=== PATIENT | male | born 1985 | race Caucasian/White ===

== ENCOUNTER 2024-08-08 19:01 | Emergency (ER) | payer MEDICAID, SELFPAY ==
[2024-08-08 19:04] VITALS: BP 148/103; PULSE 117; RESP 18; TEMP 36.7; O2SAT 100; BMI 40.9
--- NOTE | 2024-08-08 19:11 | PC.NURSE ---
Patient is unhoused. Declined CONFERENCE CENTER MANAGER consult.
--- NOTE | 2024-08-08 20:21 | PC.NURSE ---
Patient notified registration that they were leaving at 2004.
== END 2024-08-08 20:05 | disposition left against medical advice (07) ==
PROVIDERS: Emergency Provider Emergency Medicine; PCP Physician Assistant
CPT/HCPCS: 99281

== ENCOUNTER 2025-06-23 16:09 | Observation (INO) | payer OTHER, SELFPAY ==
[2025-06-23] VITALS (29 sets, daily range): BP systolic 126–154; BP diastolic 76–99; PULSE 81–104; RESP 15–32; TEMP 36.8–37.1; O2SAT 97–100; BMI 37.6; BMI 38.5
--- NOTE | 2025-06-23 16:20 | DI.RAD.S_ITS ---
PROCEDURE: XR CHEST 1V INDICATIONS: swelling in legs bilaterally TECHNIQUE: One view of the chest was acquired. COMPARISON: None. FINDINGS: Surgical changes and devices: None. Lungs and pleura: Lungs are clear. No pleural effusions or pneumothorax. Low lung volumes accentuate pulmonary interstitium and heart size. Mediastinum: Mediastinal contours appear normal. Heart size is normal. Bones and chest wall: No suspicious bony lesions. Overlying soft tissues appear unremarkable. IMPRESSION: No acute cardiopulmonary abnormality is seen. Approved by: Rory Shelton M.D. on 06/23/2025 at 15:59
--- NOTE | 2025-06-23 16:20 | DI.US.S_ITS ---
PROCEDURE: US PERIPH VENOUS LOW EXTREM RT INDICATIONS: swelling right lower leg x 14 days TECHNIQUE: Real-time imaging, as well as color and pulse Doppler interrogation, were performed of the lower extremity deep veins from the inguinal ligament to the popliteal fossa, with documentation of the visualized calf veins. COMPARISON: None. FINDINGS: The common femoral, femoral, popliteal, and the visualized calf veins are normally compressible, and free of intraluminal thrombus. Color and pulse Doppler demonstrate normal phasic intraluminal flow. There is normal augmentation response to distal compression maneuver. Incidental diffuse subcutaneous edema IMPRESSION: No findings of lower extremity deep venous thrombosis. Approved by: Rory Shelton M.D. on 06/23/2025 at 16:35
--- NOTE | 2025-06-23 16:34 | EKG_ITS ---
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
[2025-06-23 17:03] LABS: INR 1.0 (0.9-1.3); Prothrombin Time 11.2 SECONDS (9.4-12.5)
[2025-06-23 17:06] LABS: PTT Partial Thromboplastin Tim 31 SECONDS (25.1-36.5)
[2025-06-23 17:08] LABS: Alanine Aminotransferase 22 IU/L (<50); Albumin 4.1 g/dL (3.5-5.0); Albumin Globulin Ratio 1.0 (1.0-2.8); Alkaline Phosphatase 103 U/L (38-126); Blood Urea Nitrogen 17 mg/dL (9-20); Calcium 8.8 mg/dL (8.4-10.2); Carbon Dioxide 23 mmol/L (22-32); Chloride 105 mmol/L (98-107); Creatine Kinase 78 U/L (55-170); Estimated Glomerular Filt Rate > 60 mL/min (>60); Globulin 4.3 g/dL (1.7-4.1); Glucose 130 mg/dL (70-99); HEMOLYSIS < 15 (0-50); Lipase 51 U/L (23-300); Magnesium 1.9 mg/dL (1.6-2.3); Potassium 3.9 mmol/L (3.4-5.1); Sodium 137 mmol/L (137-145); Total Protein 8.4 g/dL (6.3-8.2)
[2025-06-23 17:11] LABS: Add Manual Diff / Slide Review YES; Hematocrit 39.0 % (41-53); Hemoglobin 13.6 g/dL (13.5-17.5); Mean Corpuscular HGB Conc 35.0 % (30-36); Mean Corpuscular Hemoglobin 30.4 PG (26-34); Mean Corpuscular Volume 86.7 fL (80-100); Platelet Count 395 X10^3/uL (150-400)
[2025-06-23 17:19] LABS: NT-proBNP (BNP-Adult 18+) 46 pg/mL (<125); Troponin I < 0.012 ng/mL (0.01-0.034)
[2025-06-23 17:35] LABS: Eosinophils Percent Manual 1.0 % (2-4); Lymphocytes Percent Manual 19.0 % (25-45); Monocytes Percent Manual 8.0 % (2-11); Neutrophils Absolute Manual 5472 /uL (3000-5900); RBC Morphology Normal Morphology; Segmented Neutrophils Percent 72.0 % (38-70); Total Cells Counted 100
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
--- NOTE | 2025-06-23 18:49 | DI.CT.S_ITS ---
PROCEDURE: CT LE RT W CON INDICATIONS: R calf large swelling/red, neg US dvt TECHNIQUE: After the administration of intravenous contrast, 3 mm axial sections acquired of the distal right lower extremity, with coronal and sagittal reformats. COMPARISON: [facility], US, US PERIPH VENOUS LOW EXTREM RT, 06/23/2025, 17:11. [facility], CR, XR CHEST 1V, 06/23/2025, 16:32. FINDINGS: Image quality: Excellent. Bones: No significant bony abnormality is seen. Incidental note is made of an accessory ossicle, an os trigonum. Soft tissues: Generalized soft tissue swelling can be seen involving the subcutaneous fat of the distal lower extremity. No definite muscular involvement can be seen. No soft tissue gas is seen. No loculated abscess collection is seen. IMPRESSION: Significant generalized distal lower extremity cellulitis, yet without soft tissue gas, muscular involvement, or an abscess seen. No bony involvement is identified. Dictated by: Lui Aldridge M.D. on 06/23/2025 at 19:31 Approved by: Lui Aldridge M.D. on 06/23/2025 at 19:33
--- NOTE | 2025-06-23 19:17 | W.PC.EDHO ---
report given to Halie MADRID
[2025-06-23 19:20] LABS: Procalcitonin 0.050 ng/mL (<0.5)
[2025-06-23] MEDS: VANCOMYCIN 2,000 MG/400 ML PIGGYBACK 200 MG IV (19:31)
[2025-06-23 23:14] LABS: Lactate (Lactic Acid) 2.3 mmol/L (0.7-2.1)
[2025-06-24 00:19] LABS: Reflexed Lactate in 2 Hours Y
[2025-06-24] MEDS: SODIUM CHLORIDE 0.9% 1,000 ML 100 ML IV (00:30)
[2025-06-24] MEDS: CLINDAMYCIN 600 MG/50 ML PIGGYBACK 100 MG IV ×2 (00:30→10:56)
--- NOTE | 2025-06-24 01:10 | PC.NURSE ---
Pt arrived to room approximately 2240 A/O, States minimal discomfort when lying down w/ RLE elevated on pillows. States walking/pressure increases the discomfort. Skin to RLE swollen, red, & tender to touch No open areas or drainage noted . Photos taken and downloaded. IVF NS @ 100c/hr started into LAC, received Vanco in ED, Dennise presently Pt and friend oriented to room & call system. Call light w/in reach, pt calls appropriately for needs. Continue w/plan of care,.
[2025-06-24 01:39] LABS: Lactate 2HR (Lactic Acid Rflx) 0.9 mmol/L (0.7-2.1)
[2025-06-24 05:18] LABS: Add Manual Diff / Slide Review NO; Hematocrit 37.5 % (41-53); Hemoglobin 12.9 g/dL (13.5-17.5); Lymphocytes Absolute Auto 1800 /uL (1100-4500); Mean Corpuscular HGB Conc 34.3 % (30-36); Mean Corpuscular Hemoglobin 29.9 PG (26-34); Mean Corpuscular Volume 87.2 fL (80-100); Platelet Count 376 X10^3/uL (150-400)
[2025-06-24 05:29] LABS: Blood Urea Nitrogen 11 mg/dL (9-20); Calcium 8.4 mg/dL (8.4-10.2); Carbon Dioxide 25 mmol/L (22-32); Chloride 104 mmol/L (98-107); Estimated Glomerular Filt Rate > 60 mL/min (>60); Glucose 99 mg/dL (70-99); HEMOLYSIS < 15 (0-50); Potassium 3.8 mmol/L (3.4-5.1); Sodium 137 mmol/L (137-145)
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
[2025-06-24] MEDS: ENOXAPARIN 40 MG/0.4 ML SYRINGE SUBCUT (10:49)
[2025-06-24] MEDS: VANCOMYCIN 2,000 MG/400 ML PIGGYBACK 200 MG IV (10:50)
--- NOTE | 2025-06-24 13:29 | CM.DANOTE ---
DCP Assessment Note: Pt is a 39yo male, currently unhoused on [address], is admitted for R leg cellulitis. Pt is currently living in his truck. Pt's Primary Care Provider is Dr. Romy Zimmer MD and insurance is [employer]. Reviewed chart and discussed with multidisciplinary team pt's medical status and initial discharge needs. DCP met w/patient at bedside; introduced self and role. Present in the room is pt's partner/friend, Drew. Patient was found in bed, alert and oriented, cooperative with assessment. Pt confirmed living situation and good support in partner, states he is mainly independent but he his R leg wound chronically flares up which makes it difficult for him to find work. Patient explained that his living situation (sleeping sitting up, not having access to keep it clean at all times) makes it difficult to heal his leg completely; he states he has been in the process of obtaining disability for it and other injuries. Pt has no history of SNF Rehab or home health. Patient states he utilizes services with the [facility] and has a case consultant, Nivia Ospina, with [facility]. Pt states they have been assisting with moving his disability case along; they were attempting to find housing for him as well but resources are limited on [address]. Pt states he has always been reluctant to move off acra but understands housing resources might be more available in [facility]. Plan: Anticipating dc back to community when medically cleared, might need assistance with transport to [facility] (his truck is still on [address]). CM team will follow closely for coordination of discharge plans. Cheryle Doyle [facility] Discharge Planning/Care Management CM Discharge Assessment Start: 06/23/25 22:27 Freq: Status: Active Protocol: Document 06/24/25 13:26 MW (Rec: 06/24/25 13:29 MW [id number]) Discharge Planning Assessment Assigned Discharge KATEY Lobato [employer] Provider Romy Zimmer Insurance [employer]/Assigned Drew, Friend Designee Name Contact Information [phone] Advance Directives? No History Provided By Patient,Medical Record Has Patient been No admitted in last 30 days? Prior Living Homeless Arrangements Comment Lives in Truck on [address] Household Members none Comment Partner, Drew, staying with him Independent with ADL Yes 's Is patient alert and Yes oriented? Discharge Plan Home Review Status In Process Please Provide Date 06/24/25 Initial DC Assessment Was Performed Next Review Type Continued Stay Review
--- NOTE | 2025-06-24 18:25 | PC.NURSE ---
Patient is A&OX3 VSS, afebrile on RA. He is independent in his room and mobilize with IV pole. He has RLE elevated and RADHA. BLE edema +2-3. Edema Greater on R than left. No open sores or weeping observed. Patient declines pain when at rest but reports pain with standing and movement. He declines needing pain medications today and states Cellulitis pain in leg is not painful to the touch He is evaluated by MD at bedside and expresses eagerness to leave the hospital and discharge back home to [facility] due to his truck being parked at his work. He is cleared for discharge on oral antibiotics and understands if symptoms worsen he will return to ED. He is escorted to ED entrance with friend /visitor and approximately 1735 this evening for catching the ferrANTERIOS with friend.
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
== END 2025-06-24 17:35 | disposition home or self-care (01) ==
LOC: ED 21:51 → AC 06-24 14:23
PROVIDERS: Emergency Medicine; Admitting Provider Internal Medicine; Emergency Provider Emergency Medicine; PCP Family Medicine; Referring Provider Emergency Medicine; Visit Provider Internal Medicine
DX: L03.115 Cellulitis of right lower limb (principal); I87.8 Other specified disorders of veins; I10 Essential (primary) hypertension; F41.9 Anxiety disorder, unspecified; F32.A Depression, unspecified; F90.9 Attention-deficit hyperactivity disorder, unspecified type; F17.210 Nicotine dependence, cigarettes, uncomplicated; Z87.828 Personal history of other (healed) physical injury and trauma; Z59.02 Unsheltered homelessness
CPT/HCPCS: 36415; 71045; 73701; 80048; 80053; 82550; 83605; 83690; 83735; 83880; 84145; 84484; 85007; 85025; 85610; 85730; 87040; 93005; 93971; 96361; 96365; 96366; 96368; 96372; 99284; 99291; G0378; J1650; J3375; Q9967